=== PATIENT | female | born 1995 | race Caucasian/White ===

== ENCOUNTER 2017-10-17 10:45 | Emergency (ER) | payer SELFPAY ==
[2017-10-17 11:03] VITALS: BP 132/76
--- NOTE | 2017-10-17 11:07 | ED Physician Documentation ---
General Adult - HISTORIAN Historian: patient - HPI Stated Complaint: L wrist pain Chief Complaint: General Adult Onset: days ago Timing: still present Severity: moderate Further Comments: yes (Pt is a 21 yo female with L wrist pain. Pain occurred spontaneously and occurs in the mid-vental part of wrist with and extention or flexion. No swelling. Pt works in alf [employer]. She does not have an obvious repetative use situation.) - ROS CONST: no problems EYES/ENT: none CVS/RESP: none GI/: none MS/SKIN/LYMPH: other (L wrist pain) - PAST HX Past History: other (anxiety) Surgeries/Procedures: Allergies/Adverse Reactions: Allergies Allergy/AdvReac Type Severity Reaction Status Date / Time No Known Allergies Allergy Verified 10/17/17 10:57 Home Medications: Ambulatory Orders Medication Instructions Recorded NK [NK] 10/17/17 - SOCIAL HX Smoking History: cigarettes - FAMILY HX Family History: No - VITAL SIGNS Vital Signs: Vital Signs Temp Pulse Resp BP Pulse Ox 98.2 F 61 20 132/76 99 10/17/17 10:58 10/17/17 10:58 10/17/17 10:58 10/17/17 10:58 10/17/17 10:58 - REVIEWED ASSESSMENTS Nursing Assessment Reviewed: Yes Vitals Reviewed: Yes Progress - Progress Progress: X-ray L wrist: neg ? carpal tunnel Toradol 60 mg IM Wrist splint. Wear especially at night. Ibuprofen 200 mg. Take 3 tablet every 8 hrs with food. ED Results Lab/Radiology - Orders Orders: ED Orders Category Date Time Status URINE HCG Stat Lab 10/17/17 Uncollected General Adult Physical Exam - PHYSICAL EXAM GENERAL APPEARANCE: moderate distress NECK: normal inspection, supple RESPIRATORY: no resp distress BACK: normal inspection SKIN: warm/dry, normal color EXTREMITIES: other (tenderness in cental ventral point of L wrist; worse with flexion/extension; no swelling) NEURO: oriented X3, motor nml, sensation nml Discharge Clincal Impression: Left wrist pain, possible carpal tunnel Referrals: Primary Doctor,No [Primary Care Provider] - Condition: Good Disposition: 01 HOME, SELF-CARE Decision to Admit: NO Decision Time: 11:28
[2017-10-17] MEDS ORDERED: KETOROLAC TROMETHAMINE 60 MG/2 ML VIAL IM ONE (11:26)
--- NOTE | 2017-10-17 11:32 | Diagnostic Imaging Report ---
[facility] [id number] [facility].[address] 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 STATES WHEN SHE EXTENDS HER FINGERS THE PAIN GOES TO ALL FINGERS. PAIN STARTED ON 10/16/17. NO KNOWN INJURY. NO PREVIOUS INJURY OR SURGERY. (Hx) / PAIN (DICOM Hx) / PAIN (Pt comments) Comparison exams: None available Findings: 3 views the left wrist demonstrate normal cortical margins. No fracture. No dislocation. Posterior unfused ossicle. No soft tissue abnormality. Impression: No acute appearing osseous abnormality Electronically signed on Oct 17, 2017 11:28:37 AM SOFTWARE LICENSING EXECUTIVE by: Aman MARTIN
== END 2017-10-17 11:40 | disposition home or self-care (01) ==
LOC: ED 10:45
DX: M25.532 Pain in left wrist (principal)
CPT/HCPCS: 73110; 81025; J1885; L3908; 96372; 99283

== ENCOUNTER 2018-04-21 14:40 | Emergency (ER) | payer OTHER ==
[2018-04-21 14:55] VITALS: BP 154/80
--- NOTE | 2018-04-21 15:02 | ED Physician Documentation ---
General Adult - HISTORIAN Historian: patient - HPI Stated Complaint: abcess L upper arm Chief Complaint: General Adult Onset: days ago Timing: still present Severity: mild Further Comments: yes (Pt is a 22 yo female with a small abscess on her L upper arm. Pt is at approx 3 months gestation. No fever.) - ROS CONST: no problems EYES/ENT: none CVS/RESP: none GI/: none MS/SKIN/LYMPH: other (small abscess L upper arm) - PAST HX Past History: hypertension Surgeries/Procedures: Allergies/Adverse Reactions: Allergies Allergy/AdvReac Type Severity Reaction Status Date / Time No Known Allergies Allergy Verified 04/21/18 14:55 Home Medications: Ambulatory Orders Medication Instructions Recorded Aspirin [Faina] 81 mg PO DAILY 04/21/18 Cephalexin [Keflex] 500 mg PO TID #30 capsule 04/21/18 Vit/Iron Fum/Folic AC 1 tab PO DAILY 04/21/18 [ Tablet] - SOCIAL HX Smoking History: cigarettes - FAMILY HX Family History: No - VITAL SIGNS Vital Signs: Vital Signs Temp Pulse Resp BP Pulse Ox 98.5 F 84 16 154/80 98 04/21/18 14:50 04/21/18 14:50 04/21/18 14:50 04/21/18 14:50 04/21/18 14:50 - REVIEWED ASSESSMENTS Nursing Assessment Reviewed: Yes Vitals Reviewed: Yes Progress - Progress Progress: Rx Keflex 500 mg. Take one every 8 hrs for 10 days. General Adult Physical Exam - PHYSICAL EXAM GENERAL APPEARANCE: no distress EENT: pharynx normal NECK: normal inspection, supple RESPIRATORY: no resp distress, chest non-tender, breath sounds normal CVS: reg rate & rhythm, heart sounds normal ABDOMEN: soft, normal bowel sounds, other (gravid) BACK: normal inspection, no CVA tenderness SKIN: other (2 cm abscess L upper arm) EXTREMITIES: normal range of motion, no evidence of injury NEURO: oriented X3, motor nml, sensation nml Discharge Clincal Impression: Abscess Prescriptions: Cephalexin [Keflex] 500 mg PO TID #30 capsule Referrals: Primary Doctor,No [Primary Care Provider] - Condition: Good Disposition: 01 HOME, SELF-CARE Decision to Admit: NO Decision Time: 15:06
== END 2018-04-21 15:14 | disposition home or self-care (01) ==
LOC: ED 14:40
DX: L02.414 Cutaneous abscess of left upper limb (principal)
CPT/HCPCS: 99282

== ENCOUNTER 2019-07-25 18:34 | Emergency (ER) | payer OTHER ==
--- NOTE | 2019-07-25 18:50 | ED Physician Documentation ---
Sore Throat/Dental Pain - HISTORIAN Historian: patient - HPI Stated Complaint: dental pain Chief Complaint: Dental Pain Additional Information: Patient presents to ED with a 4 day history of left upper dental pain. Patient has an appointment to see dentist tomorrow. Onset: days ago (4) Context: Fractured Tooth, Dental Caries Associated Symptoms: denies: fever Worsened By: heat, cold, other (air) - ROS CONST: no problems CVS/RESP: denies: chest pain, shortness of breath GI/: denies: nausea MS/SKIN/LYMPH: denies: muscle aches NEURO/PSYCH: denies: headache - PAST HX Past History: none Other History: none Allergies/Adverse Reactions: Allergies Allergy/AdvReac Type Severity Reaction Status Date / Time No Known Allergies Allergy Verified 04/21/18 14:55 Home Medications: Ambulatory Orders Medication Instructions Recorded Aspirin [Faina] 81 mg PO DAILY 04/21/18 Cephalexin [Keflex] 500 mg PO TID #30 capsule 04/21/18 Vit/Iron Fum/Folic AC 1 tab PO DAILY 04/21/18 [ Tablet] - SOCIAL HX Smoking History: cigarettes Alcohol Use: none Drug Use: none - FAMILY HX Family History: No - VITAL SIGNS Vital Signs: Vital Signs Temp Pulse Resp BP Pulse Ox 154/80 04/21/18 15:15 - REVIEWED ASSESSMENTS Nursing Assessment Reviewed: Yes Vitals Reviewed: Yes Dental Pain Physical Exam - EXAM General Appearance: no acute distress, alert Head/Neck: head nml inspection. No: cervical lymphadenopathy Eyes: PERRL Mouth/Throat: lips nml, pharynx nml, voice nml, dental tenderness, widespread dental decay Ear/Nose: nml inspection Respiratory: no resp. distress, respiratory distress CVS: reg. rate & rhythm, heart sounds nml Abdomen: soft, normal bowel sounds, non-tender Extremities: non-tender Skin: warm/dry Neuro/Psych: none Discharge Clincal Impression: Pain, dental Referrals: Primary Doctor,No [Primary Care Provider] - 2 Days Condition: Stable Disposition: 01 HOME, SELF-CARE Decision to Admit: NO Date of Decison to Admit: 07/25/19 Decision Time: 18:59
[2019-07-25 18:56] VITALS: BP 160/80
== END 2019-07-25 19:09 | disposition home or self-care (01) ==
LOC: ED 18:34
DX: K08.89 Other specified disorders of teeth and supporting structures (principal); F17.210 Nicotine dependence, cigarettes, uncomplicated
CPT/HCPCS: 99281; 99282